=== PATIENT | female | born 1950 | race Caucasian/White ===

== ENCOUNTER 2022-04-07 08:02 | Observation (INO) ==
[2022-04-07] MEDS ORDERED: CeFAZolin Syr 2,000MG/20 ML 2,000 MG/20 ML SYRINGE IVPB ONE (08:24)
[2022-04-07] MEDS ORDERED: Ringers Solution, Lactated 1,000 ML IVC SCH (08:30)
[2022-04-07] MEDS ORDERED: *HR* HYDROmorphone PF 0.5 MG/0.5 ML SYRINGE IVP PRN (08:46)
[2022-04-07] MEDS ORDERED: Acetaminophen IV 1,000 MG/100 ML BAG IVPB ONE (08:47)
[2022-04-07] MEDS ORDERED: Lidocaine -MPF 2% 2 ML VIAL ONE (09:31)
[2022-04-07] MEDS ORDERED: *HR* Propofol 200 MG/20 ML VIAL IVP ONE (09:31)
[2022-04-07] MEDS ORDERED: Ondansetron 4 MG/2 ML VIAL ONE (09:31)
[2022-04-07] MEDS ORDERED: *HR* FentaNYL (PF) 100 MCG/2 ML VIAL ONE ×2 (09:31→13:32)
[2022-04-07] MEDS ORDERED: *HR* Rocuronium Bromide 50 MG/5 ML VIAL ONE (09:52)
[2022-04-07] MEDS ORDERED: *HR* Succinylcholine 200 MG/10 ML VIAL IVP ONE (09:52)
[2022-04-07] MEDS ORDERED: *HR* HYDROMORPHONE 2 MG/ML VIAL ONE (14:23)
[2022-04-07] MEDS ORDERED: *HR* Labetalol 20 MG/4 ML SYRINGE IVP ONE (14:33)
[2022-04-07] MEDS ORDERED: Ondansetron 4 MG/2 ML VIAL IVP PRN (17:43)
[2022-04-07] MEDS ORDERED: *HR* HYDROcodone/Acet 5/325 mg TABLET PO PRN (17:43)
[2022-04-07] MEDS ORDERED: Naloxone 0.4 MG/ML INJ IVP PRN ×2 (17:43)
[2022-04-07] MEDS ORDERED: Ketorolac 30 MG/ML VIAL IVP PRN (17:43)
[2022-04-07] MEDS: Metoprolol 100 MG TABLET PO SCH (21:23)
[2022-04-07] MEDS: CeFAZolin 2 GM/120 ML BAG IVPB SCH (21:23)
[2022-04-07] MEDS: Gabapentin 100 MG CAPSULE PO SCH (21:23)
[2022-04-07] MEDS: *HR* Heparin 5,000 UNIT/ML VIAL SQ SCH (23:38)
[2022-04-08 01:35] LABS: Basophils % 0.1 %; Hematocrit 35.6 % (35.3-44.9); Hemoglobin 11.4 g/dL (11.5-15.4); Immature Granulocytes % 0.4 % (0-4); Lymphocytes # 0.9 K/mcL (0.6-4.6); Lymphocytes % 6.8 %; Mean Corpuscular Hemoglobin 31.8 pg (28.0-33.3); Mean Corpuscular Volume 99.2 fL (83.0-100.0); Mean Platelet Volume 10.6 fL (9.4-12.4); Monocytes # 0.5 K/mcL (0.0-1.3); Monocytes % 3.6 %; Neutrophils # 11.9 K/mcL (1.6-8.9); Platelet Count 218 K/mcL (140-400); Red Blood Count 3.59 M/mcL (3.82-4.97); Red Cell Distribution Width 12.4 % (11.5-14.5); Segmented Neutrophils % 89.1 %; White Blood Count 13.4 K/mcL (4.3-11.1)
[2022-04-08 01:58] LABS: Calcium 8.6 mg/dL (8.6-10.3); Potassium 4.3 mEq/L (3.5-5.1)
[2022-04-08] MEDS: CeFAZolin 2 GM/120 ML BAG IVPB SCH (05:03)
[2022-04-08] MEDS: Metoprolol 100 MG TABLET PO SCH (08:23)
[2022-04-08] MEDS: Gabapentin 100 MG CAPSULE PO SCH ×2 (08:23→14:42)
[2022-04-08] MEDS: *HR* Heparin 5,000 UNIT/ML VIAL SQ SCH (08:23)
[2022-04-08] MEDS ORDERED: Pantoprazole 40 MG VIAL IVP SCH (09:00)
[2022-04-08] MEDS ORDERED: Ibuprofen 600 MG TABLET PO ONE (13:35)
[2022-04-08] MEDS ORDERED: Flu Vac QV 22-23 (6MOS UP)/PF 0.5 ML SYRINGE IM ONE (14:02)
[2022-04-08 14:58] VITALS: BP 109/67; PULSE 72; TEMP 97.8; O2SAT 91
== END 2022-04-08 16:13 | disposition home or self-care (01) ==
LOC: SAMDAY 08:02 → 3ANU 13:11 → INTOOBSV 17:26 → 3ANU 17:26
PROVIDERS: ADMIT Surgery; ATTEND Surgery
PROC: GENSENT (ICD-10-PCS; 2022-04-07 11:15)

== ENCOUNTER 2022-04-22 15:03 | Inpatient (IN) ==
[2022-04-22 20:17] LABS: Hemoglobin 13.3 g/dL (11.5-15.4); Mean Corpuscular Hemoglobin 31.4 pg (28.0-33.3)
[2022-04-22 20:19] LABS: Hematocrit 40.9 % (35.3-44.9); Mean Corpuscular HGB Conc 32.5 g/dL (31.6-35.5); Mean Corpuscular Volume 96.7 fL (83.0-100.0); Monocytes # 2.7 K/mcL (0.0-1.3); Platelet Count 269 K/mcL (140-400); Red Blood Count 4.23 M/mcL (3.82-4.97); Red Cell Distribution Width 12.4 % (11.5-14.5); White Blood Count 27.4 K/mcL (4.3-11.1)
[2022-04-22] MEDS ORDERED: Piperacillin/Tazobactam 3.375 GM in 0.9 % Sodium Chloride Mini Bag 100 ML IVPB ONE (20:23)
[2022-04-22] MEDS ORDERED: Ringers Solution, Lactated 1,000 ML IVC ONE ×2 (20:25→20:26)
[2022-04-22] MEDS ORDERED: Acetaminophen 325 MG TABLET PO ONE (20:33)
[2022-04-22 20:39] LABS: Lymphocytes # 0.6 K/mcL (0.6-4.6); Neutrophils # 24.1 K/mcL (1.6-8.9); Platelet Estimate Normal (Normal)
[2022-04-22] MEDS ORDERED: Vancomycin 1,500 MG/265 ML IV.SOLN IVPB ONE (21:00)
[2022-04-22 21:10] LABS: Calcium 9.3 mg/dL (8.6-10.3); Potassium 3.2 mEq/L (3.5-5.1)
[2022-04-22] MEDS ORDERED: Potassium Effervescent 25 MEQ TABLET.EFF PO ONE (21:25)
[2022-04-22] MEDS ORDERED: Iopamidol - 370 500 ML MLS IVP ONE (21:46)
[2022-04-22] MEDS ORDERED: Naloxone 0.4 MG/ML INJ IVP PRN (21:59)
[2022-04-22] MEDS ORDERED: Melatonin 3 MG TABLET PO PRN (21:59)
[2022-04-23] MEDS ORDERED: D5% in Water 1,000 ML IVC PRN (00:02)
[2022-04-23] MEDS ORDERED: *HR* Dextrose 50 % in Water (Syg) 50 ML SYRINGE IVP PRN (00:02)
[2022-04-23] MEDS ORDERED: Dextrose Gel 15 GM/37.5 ML TUBE PO PRN ×2 (00:02)
[2022-04-23] MEDS ORDERED: Ringers Solution, Lactated 1,000 ML IVC SCH (01:00)
[2022-04-23 01:03] LABS: Basophils % 0.2 %; Red Cell Distribution Width 12.4 % (11.5-14.5)
[2022-04-23 01:04] LABS: Basophils # 0.1 K/mcL (0.0-0.2); Hematocrit 34.4 % (35.3-44.9); Hemoglobin 11.4 g/dL (11.5-15.4); Immature Granulocytes % 1.1 % (0-4); Lymphocytes # 1.4 K/mcL (0.6-4.6); Lymphocytes % 5.6 %; Mean Corpuscular HGB Conc 33.1 g/dL (31.6-35.5); Mean Corpuscular Hemoglobin 32.1 pg (28.0-33.3); Mean Corpuscular Volume 96.9 fL (83.0-100.0); Mean Platelet Volume 11.4 fL (9.4-12.4); Monocytes # 2.3 K/mcL (0.0-1.3); Monocytes % 9.1 %; Neutrophils # 20.9 K/mcL (1.6-8.9); Platelet Count 221 K/mcL (140-400); Red Blood Count 3.55 M/mcL (3.82-4.97)
[2022-04-23 01:06] LABS: White Blood Count 24.9 K/mcL (4.3-11.1)
[2022-04-23 01:11] LABS: INR 2.1; Prothrombin Time 23.7 Seconds (9.4-12.1)
[2022-04-23] MEDS: *HR* HYDROcodone/Acet 5/325 mg TABLET PO PRN (01:40)
[2022-04-23] MEDS ORDERED: *HR* Metoprolol 5 MG/5 ML VIAL IVP PRN (02:01)
[2022-04-23 03:55] LABS: Calcium 8.1 mg/dL (8.6-10.3); Magnesium 1.5 mg/dL (1.6-2.6); Phosphorous 3.2 mg/dL (2.7-4.5); Potassium 3.5 mEq/L (3.5-5.1)
[2022-04-23] MEDS: Piperacillin/Tazobactam 3.375 GM in 0.9 % Sodium Chloride Mini Bag 100 ML IVPB SCH ×3 (04:22→23:59)
[2022-04-23] MEDS: *HR* OxyCODONE Immed Rel 5 MG TABLET PO PRN (04:41)
[2022-04-23] MEDS ORDERED: Ringers Solution, Lactated 500 ML IVC ONE (07:00)
[2022-04-23 07:17] LABS: Albumin/Globulin Ratio 1.3 (1.1-2.2); Bilirubin,Direct 0.6 mg/dL (0.0-0.2); Bilirubin,Indirect 1.2 mg/dL (0.0-1.0); Bilirubin,Total 1.8 mg/dL (0.3-1.0); Globulin 2.3 g/dL (2.4-3.5); Total Protein 5.3 g/dL (6.4-8.9)
[2022-04-23] MEDS ORDERED: Metoprolol 100 MG TABLET PO SCH (09:00)
[2022-04-23] MEDS ORDERED: Vancomycin 1,500 MG/265 ML IV.SOLN IVPB SCH (10:00)
[2022-04-23] MEDS: Acetaminophen 325 MG TABLET PO PRN ×2 (11:40→21:29)
[2022-04-23] MEDS ORDERED: *HR* HYDROmorphone (PF) 1 MG/ML SYRINGE IVP ONE (16:34)
[2022-04-23] MEDS: Metoprolol 100 MG TABLET PO SCH (21:30)
[2022-04-24 06:06] LABS: Calcium 8.5 mg/dL (8.6-10.3); Phosphorous 2.8 mg/dL (2.7-4.5); Potassium 3.4 mEq/L (3.5-5.1)
[2022-04-24 06:25] LABS: Basophils % 0.2 %; Eosinophils # 0.1 K/mcL (0.0-0.6); Eosinophils % 0.4 %; Hemoglobin 10.4 g/dL (11.5-15.4); Immature Granulocytes % 0.8 % (0-4); Lymphocytes # 1.5 K/mcL (0.6-4.6); Lymphocytes % 6.7 %; Mean Corpuscular HGB Conc 31.5 g/dL (31.6-35.5); Mean Corpuscular Hemoglobin 31.4 pg (28.0-33.3); Mean Corpuscular Volume 99.7 fL (83.0-100.0); Monocytes # 1.7 K/mcL (0.0-1.3); Monocytes % 7.9 %; Neutrophils # 18.2 K/mcL (1.6-8.9); Platelet Count 211 K/mcL (140-400); Red Blood Count 3.31 M/mcL (3.82-4.97); Red Cell Distribution Width 12.7 % (11.5-14.5); White Blood Count 21.7 K/mcL (4.3-11.1)
[2022-04-24 08:41] LABS: INR 1.5; Prothrombin Time 16.3 Seconds (9.4-12.1)
[2022-04-24] MEDS: Piperacillin/Tazobactam 3.375 GM in 0.9 % Sodium Chloride Mini Bag 100 ML IVPB SCH ×2 (09:14→17:02)
[2022-04-24] MEDS: Acetaminophen 325 MG TABLET PO PRN ×2 (09:16→21:21)
[2022-04-24] MEDS: Metoprolol 100 MG TABLET PO SCH ×2 (09:17→21:22)
[2022-04-24] MEDS ORDERED: Fluticasone Propionate Nasal 50 MCG/SPRAY BOTTLE NS PRN (09:20)
[2022-04-24] MEDS ORDERED: Vancomycin 1,750 MG/517.5 ML IV.SOLN IVPB SCH (11:00)
[2022-04-24] MEDS: Apixaban 5 MG TABLET PO SCH ×2 (11:37→21:23)
[2022-04-24] MEDS: 0.9 % Sodium Chloride 1,000 ML IVC SCH (11:40)
[2022-04-24] MEDS: Gabapentin 100 MG CAPSULE PO SCH ×2 (15:52→21:23)
[2022-04-24] MEDS: Ondansetron 4 MG/2 ML VIAL IVP PRN (15:52)
[2022-04-25] MEDS: Piperacillin/Tazobactam 3.375 GM in 0.9 % Sodium Chloride Mini Bag 100 ML IVPB SCH ×2 (00:36→08:23)
[2022-04-25 02:17] LABS: Basophils % 0.2 %; Eosinophils # 0.3 K/mcL (0.0-0.6); Hematocrit 33.6 % (35.3-44.9); Hemoglobin 10.3 g/dL (11.5-15.4); Immature Granulocytes % 0.8 % (0-4); Lymphocytes # 1.3 K/mcL (0.6-4.6); Lymphocytes % 7.8 %; Mean Corpuscular HGB Conc 30.7 g/dL (31.6-35.5); Mean Corpuscular Hemoglobin 31.3 pg (28.0-33.3); Mean Corpuscular Volume 102.1 fL (83.0-100.0); Mean Platelet Volume 11.9 fL (9.4-12.4); Monocytes # 1.2 K/mcL (0.0-1.3); Monocytes % 6.8 %; Platelet Count 234 K/mcL (140-400); Red Blood Count 3.29 M/mcL (3.82-4.97); Red Cell Distribution Width 12.7 % (11.5-14.5); Segmented Neutrophils % 82.4 %; White Blood Count 16.9 K/mcL (4.3-11.1)
[2022-04-25 02:41] LABS: Calcium 8.3 mg/dL (8.6-10.3); Magnesium 2.1 mg/dL (1.6-2.6); Potassium 3.4 mEq/L (3.5-5.1)
[2022-04-25] MEDS: 0.9 % Sodium Chloride 1,000 ML IVC SCH ×3 (03:51→16:33)
[2022-04-25] MEDS: *HR* OxyCODONE Immed Rel 5 MG TABLET PO PRN (03:54)
[2022-04-25] MEDS ORDERED: Doxycycline 100 MG in 0.9 % Sodium Chloride Mini Bag 100 ML IVPB SCH (10:04)
[2022-04-25] MEDS: Metoprolol 100 MG TABLET PO SCH ×2 (12:13→21:12)
[2022-04-25] MEDS: Apixaban 5 MG TABLET PO SCH ×2 (12:14→21:12)
[2022-04-25] MEDS: Gabapentin 100 MG CAPSULE PO SCH ×3 (12:14→21:12)
[2022-04-25] MEDS: Cefepime HCl 2,000 MG in 0.9 % Sodium Chloride Mini Bag 100 ML IVPB SCH (18:15)
[2022-04-25] MEDS: Doxycycline 100 MG CAPSULE PO SCH (21:12)
[2022-04-26 03:29] LABS: Basophils # 0.1 K/mcL (0.0-0.2); Basophils % 0.5 %; Eosinophils # 0.3 K/mcL (0.0-0.6); Hematocrit 34.8 % (35.3-44.9); Hemoglobin 10.6 g/dL (11.5-15.4); Immature Granulocytes % 1.6 % (0-4); Lymphocytes # 1.5 K/mcL (0.6-4.6); Lymphocytes % 11.2 %; Mean Corpuscular HGB Conc 30.5 g/dL (31.6-35.5); Mean Corpuscular Hemoglobin 31.5 pg (28.0-33.3); Mean Corpuscular Volume 103.6 fL (83.0-100.0); Mean Platelet Volume 11.2 fL (9.4-12.4); Monocytes % 7.5 %; Neutrophils # 10.3 K/mcL (1.6-8.9); Platelet Count 243 K/mcL (140-400); Red Blood Count 3.36 M/mcL (3.82-4.97); Red Cell Distribution Width 12.7 % (11.5-14.5); Segmented Neutrophils % 77.2 %; White Blood Count 13.3 K/mcL (4.3-11.1)
[2022-04-26 03:48] LABS: Calcium 7.9 mg/dL (8.6-10.3); Magnesium 1.9 mg/dL (1.6-2.6); Phosphorous 2.8 mg/dL (2.7-4.5); Potassium 3.8 mEq/L (3.5-5.1)
[2022-04-26] MEDS: 0.9 % Sodium Chloride 1,000 ML IVC SCH ×2 (03:55→15:04)
[2022-04-26] MEDS: Cefepime HCl 2,000 MG in 0.9 % Sodium Chloride Mini Bag 100 ML IVPB SCH ×2 (06:58→17:27)
[2022-04-26] MEDS: Acetaminophen 325 MG TABLET PO PRN (09:56)
[2022-04-26] MEDS: Metoprolol 100 MG TABLET PO SCH ×2 (09:56→20:23)
[2022-04-26] MEDS: Doxycycline 100 MG CAPSULE PO SCH ×2 (09:56→20:23)
[2022-04-26] MEDS: Gabapentin 100 MG CAPSULE PO SCH ×3 (09:56→20:23)
[2022-04-26] MEDS: Apixaban 5 MG TABLET PO SCH ×2 (09:56→20:23)
[2022-04-26 10:14] LABS: Uric Acid 4.6 mg/dL (2.3-7.6)
[2022-04-26 15:12] LABS: Amorphous Sediment,Urine Few per hpf (None-Few); Bacteria,Urine Few per hpf (None-Few); Bilirubin,Urine Negative (Negative); Blood,Urine Trace (Negative); Budding Yeast,Urine Few per hpf (None Seen); Clarity,Urine Turbid (Clear); Color,Urine Light-Yellow (Yellow); Glucose,Urine (UA) Normal (Normal); Ketones,Urine Trace mg/dL (Negative); Leukocyte Esterase,Urine Moderate (Negative); Mucus,Urine Few per lpf (None-Few); Nitrite,Urine Negative (Negative); Protein,Urine 70 mg/dL (Neg-Trace); Specific Gravity,Urine 1.021 (1.010-1.025); Squamous Epithelial Cell,Urine Many per hpf (None-Few); Urobilinogen,Urine Normal (Normal)
[2022-04-26 15:22] LABS: Protein/Creatinine Ratio,Urine 0.68 mg/mg (0.00-0.20); Sodium, Urine 26.8 mEq/L
[2022-04-26] MEDS ORDERED: Cefepime HCl 1,000 MG in 0.9 % Sodium Chloride Mini Bag 100 ML IVPB SCH (18:00)
[2022-04-26] MEDS: *HR* HYDROcodone/Acet 5/325 mg TABLET PO PRN (20:23)
[2022-04-27] MEDS: 0.9 % Sodium Chloride 1,000 ML IVC SCH (02:14)
[2022-04-27] MEDS: Ondansetron 4 MG/2 ML VIAL IVP PRN (02:15)
[2022-04-27] MEDS: *HR* OxyCODONE Immed Rel 5 MG TABLET PO PRN (02:16)
[2022-04-27 03:30] LABS: Basophils # 0.1 K/mcL (0.0-0.2); Basophils % 0.7 %; Eosinophils # 0.4 K/mcL (0.0-0.6); Eosinophils % 3.9 %; Hematocrit 33.4 % (35.3-44.9); Hemoglobin 10.3 g/dL (11.5-15.4); Immature Granulocytes % 2.7 % (0-4); Lymphocytes % 9.2 %; Mean Corpuscular HGB Conc 30.8 g/dL (31.6-35.5); Mean Corpuscular Hemoglobin 31.6 pg (28.0-33.3); Mean Corpuscular Volume 102.5 fL (83.0-100.0); Monocytes % 9.1 %; Neutrophils # 8.3 K/mcL (1.6-8.9); Nucleated Red Blood Cells 0.3 /100 WBC (0); Platelet Count 229 K/mcL (140-400); Red Blood Count 3.26 M/mcL (3.82-4.97); Red Cell Distribution Width 12.3 % (11.5-14.5); Segmented Neutrophils % 74.4 %; White Blood Count 11.2 K/mcL (4.3-11.1)
[2022-04-27 03:35] LABS: Calcium 8.3 mg/dL (8.6-10.3); Potassium 3.7 mEq/L (3.5-5.1)
[2022-04-27] MEDS: Cefepime HCl 1,000 MG in 0.9 % Sodium Chloride Mini Bag 100 ML IVPB SCH ×2 (07:05→20:52)
[2022-04-27] MEDS: Apixaban 5 MG TABLET PO SCH ×2 (10:16→20:50)
[2022-04-27] MEDS: Metoprolol 100 MG TABLET PO SCH ×2 (10:17→20:50)
[2022-04-27] MEDS: Gabapentin 100 MG CAPSULE PO SCH ×3 (10:17→20:50)
[2022-04-27] MEDS: Doxycycline 100 MG CAPSULE PO SCH ×2 (10:17→20:50)
[2022-04-27] MEDS ORDERED: 0.9 % Sodium Chloride 1,000 ML IVC SCH (12:15)
[2022-04-28 03:36] LABS: Potassium 3.9 mEq/L (3.5-5.1)
[2022-04-28] MEDS: Cefepime HCl 1,000 MG in 0.9 % Sodium Chloride Mini Bag 100 ML IVPB SCH ×2 (04:48→18:23)
[2022-04-28] MEDS: Apixaban 5 MG TABLET PO SCH ×2 (09:58→21:11)
[2022-04-28] MEDS: Gabapentin 100 MG CAPSULE PO SCH ×3 (09:58→21:11)
[2022-04-28] MEDS: Metoprolol 100 MG TABLET PO SCH ×2 (09:58→21:11)
[2022-04-28] MEDS: Doxycycline 100 MG CAPSULE PO SCH ×2 (09:58→21:11)
[2022-04-28] MEDS ORDERED: 0.9 % Sodium Chloride 1,000 ML IVC SCH (13:15)
[2022-04-28] MEDS: Acetaminophen 325 MG TABLET PO PRN (23:46)
[2022-04-29] MEDS: Cefepime HCl 1,000 MG in 0.9 % Sodium Chloride Mini Bag 100 ML IVPB SCH (05:36)
[2022-04-29 06:47] LABS: Basophils # 0.1 K/mcL (0.0-0.2); Basophils % 0.4 %; Eosinophils # 0.4 K/mcL (0.0-0.6); Eosinophils % 3.6 %; Hematocrit 31.5 % (35.3-44.9); Hemoglobin 9.9 g/dL (11.5-15.4); Immature Granulocytes % 2.6 % (0-4); Lymphocytes # 1.2 K/mcL (0.6-4.6); Lymphocytes % 11.1 %; Mean Corpuscular HGB Conc 31.4 g/dL (31.6-35.5); Mean Corpuscular Hemoglobin 31.1 pg (28.0-33.3); Mean Corpuscular Volume 99.1 fL (83.0-100.0); Mean Platelet Volume 10.5 fL (9.4-12.4); Monocytes # 1.2 K/mcL (0.0-1.3); Monocytes % 10.7 %; Platelet Count 276 K/mcL (140-400); Red Blood Count 3.18 M/mcL (3.82-4.97); Red Cell Distribution Width 12.3 % (11.5-14.5); Segmented Neutrophils % 71.6 %; White Blood Count 11.2 K/mcL (4.3-11.1)
[2022-04-29 07:04] VITALS: O2SAT 93
[2022-04-29 07:06] LABS: Albumin 2.8 g/dL (3.5-5.7); Bilirubin,Total 0.4 mg/dL (0.3-1.0); Calcium 8.3 mg/dL (8.6-10.3); Globulin 2.7 g/dL (2.4-3.5); Potassium 3.7 mEq/L (3.5-5.1); Total Protein 5.5 g/dL (6.4-8.9)
[2022-04-29] MEDS: Doxycycline 100 MG CAPSULE PO SCH (08:02)
[2022-04-29] MEDS: Apixaban 5 MG TABLET PO SCH (08:02)
[2022-04-29] MEDS: Metoprolol 100 MG TABLET PO SCH (08:02)
[2022-04-29] MEDS: Gabapentin 100 MG CAPSULE PO SCH (08:02)
[2022-04-29 12:12] VITALS: BP 123/76; PULSE 76; TEMP 99.1
[2022-04-29] MEDS ORDERED: Cefepime HCl 2,000 MG in 0.9 % Sodium Chloride 10 ML IVP SCH (18:00)
== END 2022-04-29 16:01 | disposition home health service (06) | DRG 862 ==
LOC: 3ANU 15:03 → EMEROOARM 15:03 → SUATTDRO 22:00 → 3ANU 22:32
PROVIDERS: ADMIT Internal Medicine; ATTEND Hospitalist